=== PATIENT | female | born 1995 | race Caucasian/White ===

== ENCOUNTER → 2018-02-21 | Outpatient (CLI) | payer BC ==
--- NOTE | 2018-02-21 10:08 | US ---
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 GLAND SIZE: Right Lobe: 4.8 x 1.9 x 1.8 cm Overall Parenchyma: heterogenous Left Lobe: 4.1 x 1.0 x 1.8 cm Overall Parenchyma: heterogeneous Isthmus Thickness: 0.2 cm NODULES RIGHT: # of nodules measured on right: 0 LEFT: # of nodules measured on left: 0 ISTHMUS: # of nodules measured in the isthmus: 0 Bilateral heterogeneous thyroid lobes. Bilateral neck scanned, no evidence of lymphadenopathy. IMPRESSION: 1. Nonspecific glandular heterogeneity without distinct nodule.
== END | disposition home or self-care (01) ==
LOC: RADUSWWP 09:35
PROVIDERS: ATTEND Internal Medicine Geriatric Medicine
DX: E04.1 Nontoxic single thyroid nodule (principal)
CPT/HCPCS: 76536

== ENCOUNTER → 2023-09-01 | Outpatient (CLI) | payer BC ==
--- NOTE | 2023-09-01 15:54 | USB ---
Reason for Exam: Clinical finding. Technique: Method: Targeted. Findings: The upper outer quadrant of the right breast, the area of palpable concern of the right breast and the axilla of the right breast were scanned. Ultrasound upper outer quadrant including the axilla. At the patient's axillary palpable site, no solid or cystic lesion is seen. There is a benign-appearing lymph node measuring 2.0 x 0.6 x 0.7 cm with preserved fatty hilum. Additional scanning at the second palpable site in the axilla shows a cutaneous, collapsed cystlike lesion measuring 6 x 6 x 2 mm involving the deep aspect of the skin layer compatible with a cutaneous lesion. No other solid or cystic lesion. Overall Assessment: Benign, BI-RAD 2 Management: Screening Mammogram of both breasts at age 41. Unless there is a clinical indication to start sooner. Further clinical management of the patient's superficial palpable cutaneous lesion. The second palpable site seems to represent a prominent but benign axillary lymph node. Patient can continue monthly self breast exams. Results were given to the patient verbally at the time of exam. Electronically signed and approved by: Manju Aleman M.D. Radiologist
== END | disposition home or self-care (01) ==
LOC: RADUSWWP 13:56
PROVIDERS: ATTEND Internal Medicine Geriatric Medicine
DX: L02.411 Cutaneous abscess of right axilla (principal)

== ENCOUNTER → 2025-02-08 | Outpatient (CLI) | payer OTHER ==
--- NOTE | 2025-02-08 12:48 | FL ---
EXAMINATION TYPE: FL barium swallow w video DATE OF EXAM: 02/08/2025 CLINICAL HISTORY: 29-year-old female with difficulty swallowing for one month, pressure in throat, Dy sphagia. TECHNIQUE: Deglutition study is performed utilizing thin liquid barium, barium thick pudding, and ba rium coated cracker. Total fluoroscopy time 51 seconds. Total images: 1 Total DAP: 75 mGycm2. COMPARISON: None. FINDINGS: The oral and pharyngeal phases show satisfactory initiation and propagation with all modali ties tested. Normal mastication is seen with solid modalities tested. There is no evidence of penet ration or aspiration with any modality tested. No significant pharyngeal residue was appreciated. IMPRESSION: Normal deglutition study. Please refer to speech therapist notes for further details if necessary. [facility], , 02/08/2025 12:46 PM
== END | disposition home or self-care (01) ==
LOC: RADFLMAIN 11:38
PROVIDERS: ATTEND Registered Nurse Gerontology
DX: R13.10 Dysphagia, unspecified (principal)
CPT/HCPCS: 74230